=== PATIENT | male | born 1985 | race African-American/Black ===

== ENCOUNTER 2017-02-08 15:11 | Emergency (ER) | payer OTHER ==
[~2017-02-08] VITALS: Ht 170.2 cm; Wt 77.1 kg
[~2017-02-08 15:11] MED LIST: AMOXICILLIN500 M1 PO; AUGMENTIN 875-1 EACH PO; CIPRO500 MG PO; DOXYCYCLINE 10100 MG PO; FLOMAX0.4 MG PO; IBUPROFEN 800800 MG PO; LEVSIN-SL0.125 MG SL; NOHOMEMEDICATIONS; NORCO 5-325 TA1 EACH PO; PERCOCET PO; PHENERGAN 25 MG25 M1 PO; ZANTAC 150MG T150 MG PO; ZOFRAN ODT4 MG PO
[2017-02-08 15:20] VITALS: BP 125/86
[2017-02-08 15:27] LABS: URINE BILIRUBIN NEGATIVE (Negative); URINE BLOOD NEGATIVE (Negative); URINE COLOR YELLOW; URINE GLUCOSE-RANDOM* NEGATIVE (Negative); URINE KETONES NEGATIVE (Negative); URINE NITRITE NEGATIVE (Negative); URINE PROTEIN (DIPSTICK) NEGATIVE (Negative)
[2017-02-08 15:36] LABS: CASTS None Seen /LPF (None Seen); SQUAMOUS None Seen /LPF (0-3); URINE WBC 6-15 Few /HPF (0-5)
[2017-02-08 15:37] LABS: CRYSTALS None Seen /LPF (None Seen); URINE RBC 0-2 Rare /HPF (0-2)
[2017-02-08 15:38] LABS: BACTERIA 1-9 Few /HPF (None Seen)
[2017-02-08] MEDS ORDERED: FLAGYL500 MG PO (15:53)
== END 2017-02-08 16:12 | disposition home or self-care (01) ==
LOC: ER 15:11
PROVIDERS: Emergency Medicine
DX: A64 Unspecified sexually transmitted disease (principal); R30.0 Dysuria; F17.210 Nicotine dependence, cigarettes, uncomplicated; F10.99 Alcohol use, unspecified with unspecified alcohol-induced disorder; Z98.890 Other specified postprocedural states

== ENCOUNTER 2019-10-12 14:09 | Emergency (ER) | payer OTHER ==
[~2019-10-12] VITALS: Ht 172.7 cm; Wt 81.7 kg
[~2019-10-12 14:09] MED LIST changes: +FLAGYL500 MG PO
[2019-10-12 14:17] VITALS: BP 135/85
[2019-10-12 14:39] LABS: URINE BILIRUBIN NEGATIVE (Negative); URINE BLOOD 3+ (Negative); URINE COLOR YELLOW; URINE GLUCOSE-RANDOM* NEGATIVE (Negative); URINE KETONES NEGATIVE (Negative); URINE LEUKOCYTES-REFLEX NEGATIVE (Negative); URINE NITRITE-REFLEX NEGATIVE (Negative); URINE PROTEIN (DIPSTICK) NEGATIVE (Negative); URINE SPECIFIC GRAVITY 1.025 (1.005-1.035)
[2019-10-12 14:42] LABS: URINE CLARITY SL HAZY
[2019-10-12 14:47] LABS: SQUAMOUS None Seen /LPF (0-3)
[2019-10-12 14:48] LABS: BACTERIA-REFLEX 1-9 Few /HPF (None Seen); CASTS None Seen /LPF (None Seen); CRYSTALS None Seen /LPF (None Seen); MUCUS 0-3 Light strn/LPF (None Seen); URINE RBC >20 Many /HPF (0-2); URINE WBC-REFLEX 0-5 Rare /HPF (0-5)
[2019-10-12] MEDS ORDERED: KEFLEX500 M1 PO (14:56)
== END 2019-10-12 15:00 | disposition home or self-care (01) ==
LOC: ER 14:09
PROVIDERS: Emergency Medicine
DX: N39.0 Urinary tract infection, site not specified (principal); F17.210 Nicotine dependence, cigarettes, uncomplicated; Z87.442 Personal history of urinary calculi; Z90.49 Acquired absence of other specified parts of digestive tract